=== PATIENT | male | born 1935 | race African-American/Black ===

== ENCOUNTER 2017-07-23 11:02 | Inpatient (IN) | payer MEDICARE ==
[2017-07-23] MEDS ORDERED: PROVENTIL IH ONE (11:10)
[2017-07-23] MEDS ORDERED: ATROVENT IH ONE (11:10)
[2017-07-23] MEDS ORDERED: MAGNESIUM SULFATE 2GM/50ML 2 GM/50 ML BAG IV ONE (11:10)
--- NOTE | 2017-07-23 11:13 | Emergency Department Report ---
ED General Adult HPI - General Chief complaint: Dyspnea/Respdistress Stated complaint: JEWEL Time Seen by Provider: 07/23/17 11:07 Source: patient, EMS (verbal report received from EMS.ems notes not available at time of chart dictation), RN notes reviewed Mode of arrival: Stretcher Limitations: Physical Limitation - History of Present Illness Initial comments: This is an 82-year-old male, patient previously known to me, has a past medical history of asthma or COPD, high cholesterol, diabetes, possible congestive heart failure, hypertension, CABG, end-stage renal disease on dialysis, his private urogynecology physician is Dr. Bakari Granger. Patient was supposed to get dialysis today, and is brought to the hospital by EMS for shortness of breath. His shortness of breath is constant. He is coughing. He is wheezing. He has mucus production. He denies headache, neck pain, abdominal pain, hematemesis, bright red blood per rectum. Patient started empirically on positive pressure ventilation, albuterol, Atrovent, steroids, magnesium. These interventions dramatically improved his symptoms. -: Gradual Consistency: constant Improves with: medication Worsens with: rest Associated Symptoms: cough, loss of appetite, malaise, shortness of breath. denies: confusion, chest pain, diaphoresis, fever/chills, rash, seizure - Related Data Home Medications Medication Instructions Recorded Confirmed Last Taken ALBUTEROL Inhaler [ProAir HFA 90 mcg IH QID 09/21/15 09/21/15 Unknown Inhaler] Cholecalciferol (Vitamin D3) 2,000 unit PO QDAY 09/21/15 09/21/15 Unknown [Vitamin D3 2,000 unit] Cilostazol [Pletal] 50 mg PO BID 09/21/15 09/21/15 Unknown Fenofibric Acid 45 mg PO DAILY 09/21/15 09/21/15 Unknown Fluticasone/Salmeterol [Advair 1 puff IH BID 09/21/15 09/21/15 Unknown Diskus 250-50 mcg] Pravastatin Sodium [Pravastatin] 80 mg PO DAILY 09/21/15 09/21/15 Unknown Tiotropium [Spiriva] 18 mcg IH QDAY 09/21/15 09/21/15 Unknown Previous Rx's Medication Instructions Recorded Last Taken Type Aspirin EC [Aspirin Enteric Coated 81 mg PO QDAY tablet 09/30/15 Unknown Rx TAB] Cephalexin [Keflex] 500 mg PO Q8HR 3 Days cap 09/30/15 Unknown Rx Insulin Glargine,Hum.rec.anlog 10 units SQ QHS 30 Days pen 09/30/15 Unknown Rx [Lantus Solostar] Insulin Glulisine [Apidra] See Protocol SUB-Q ACHS 30 Days 09/30/15 Unknown Rx units Warfarin [Coumadin] 5 mg PO DAILY@1700 30 Days tablet 09/30/15 Unknown Rx amLODIPine [Norvasc] 10 mg PO QDAY 30 Days tablet 09/30/15 Unknown Rx oxyCODONE /ACETAMINOPHEN [Percocet 1 tab PO Q6H PRN #17 tablet 09/30/15 Unknown Rx 5/325 mg] Allergies Allergy/AdvReac Type Severity Reaction Status Date / Time No Known Allergies Allergy Unverified 09/21/15 18:10 ED Review of Systems ROS: Stated complaint: JEWEL Other details as noted in HPI ED Past Medical Hx - Past Medical History Hx Hypertension: Yes Hx Congestive Heart Failure: Yes Hx Diabetes: Yes Hx Asthma: Yes Hx COPD: Yes - Surgical History Additional Surgical History: Triple bypass - Social History Smoking Status: Former Smoker - Medications Home Medications: Home Medications Medication Instructions Recorded Confirmed Last Taken Type ALBUTEROL Inhaler [ProAir HFA 90 mcg IH QID 09/21/15 09/21/15 Unknown History Inhaler] Cholecalciferol (Vitamin D3) 2,000 unit PO QDAY 09/21/15 09/21/15 Unknown History [Vitamin D3 2,000 unit] Cilostazol [Pletal] 50 mg PO BID 09/21/15 09/21/15 Unknown History Fenofibric Acid 45 mg PO DAILY 09/21/15 09/21/15 Unknown History Fluticasone/Salmeterol [Advair 1 puff IH BID 09/21/15 09/21/15 Unknown History Diskus 250-50 mcg] Pravastatin Sodium [Pravastatin] 80 mg PO DAILY 09/21/15 09/21/15 Unknown History Tiotropium [Spiriva] 18 mcg IH QDAY 09/21/15 09/21/15 Unknown History Aspirin EC [Aspirin Enteric Coated 81 mg PO QDAY tablet 09/30/15 Unknown Rx TAB] Cephalexin [Keflex] 500 mg PO Q8HR 3 Days cap 09/30/15 Unknown Rx Insulin Glargine,Hum.rec.anlog 10 units SQ QHS 30 Days pen 09/30/15 Unknown Rx [Lantus Solostar] Insulin Glulisine [Apidra] See Protocol SUB-Q ACHS 30 Days 09/30/15 Unknown Rx units Warfarin [Coumadin] 5 mg PO DAILY@1700 30 Days tablet 09/30/15 Unknown Rx amLODIPine [Norvasc] 10 mg PO QDAY 30 Days tablet 09/30/15 Unknown Rx oxyCODONE /ACETAMINOPHEN [Percocet 1 tab PO Q6H PRN #17 tablet 09/30/15 Unknown Rx 5/325 mg] ED Physical Exam - General Limitations: Physical Limitation General appearance: alert, in distress - Head Head exam: Present: atraumatic, normocephalic - Eye Eye exam: Present: normal appearance, EOMI - ENT ENT exam: Present: normal exam, normal orophraynx, mucous membranes moist, normal external ear exam - Neck Neck exam: Present: normal inspection, full ROM - Respiratory Respiratory exam: Present: wheezes, rales, rhonchi. Absent: respiratory distress - Cardiovascular Cardiovascular Exam: Present: regular rate, normal rhythm, normal heart sounds. Absent: bradycardia, tachycardia, irregular rhythm, systolic murmur, diastolic murmur, rubs, gallop - GI/Abdominal GI/Abdominal exam: Present: soft, normal bowel sounds. Absent: distended, tenderness, guarding, rebound, rigid, pulsatile mass - Rectal Rectal exam: Present: deferred - Extremities Exam Extremities exam: Present: normal inspection, full ROM, normal capillary refill , other (upper extremity AV fistula on the right, no redness, pus or streaking, positive thrill, no tenderness). Absent: pedal edema, joint swelling, calf tenderness - Back Exam Back exam: Present: normal inspection, full ROM. Absent: paraspinal tenderness , vertebral tenderness - Neurological Exam Neurological exam: Present: alert, oriented X3, CN II-XII intact, other ( Extraocular movements intact. Tongue midline. No facial droop. Facial sensation intact to light touch in the V1, V2, V3 distribution bilaterally. 5 and 5 strength in 4 extremities.. Sensation is intact to light touch in 4 extremities.). Absent: motor sensory deficit - Psychiatric Psychiatric exam: Present: anxious - Skin Skin exam: Present: warm, dry, intact, normal color. Absent: rash ED Course Vital Signs 07/23/17 07/23/17 07/23/17 11:13 11:58 11:59 Temperature 98.0 F Pulse Rate 66 60 Pulse Rate [ 61 Anterior Bilateral Throughout] Respiratory 30 H 22 Rate Respiratory 20 Rate [Anterior Bilateral Throughout] Blood Pressure 140/39 131/48 O2 Sat by Pulse 100 100 Oximetry 07/23/17 12:04 Temperature Pulse Rate Pulse Rate [ 62 Anterior Bilateral Throughout] Respiratory Rate Respiratory 65 H Rate [Anterior Bilateral Throughout] Blood Pressure O2 Sat by Pulse Oximetry - Reevaluation(s) Reevaluation #1: 07/23/17 12:13 Laboratory studies indicate hyperkalemia as expected. Patient will be managed medically for this. Hospital physician has been paged. Awaiting call back. 07/23/17 12:13 Reevaluation #2: 07/23/17 12:24 Case is presented to the Hospital physician, Dr. Bravo, he accepted the patient to the medical service. ED Medical Decision Making - Lab Data Result diagrams: 07/23/17 11:24 07/23/17 11:24 Vital Signs 07/23/17 11:13 Temperature 98.0 F Pulse Rate 66 Respiratory 30 H Rate Blood Pressure 140/39 O2 Sat by Pulse 100 Oximetry - EKG Data -: EKG Interpreted by Oh EKG shows normal: sinus rhythm - EKG Data 07/23/17 12:13 Limited by motion artifact, sinus, 62 bpm, normal axis, motion artifact, T-wave inversion in V2, grossly appears unchanged from prior from the 2016, a flutter has resolved. - Radiology Data Radiology results: report reviewed, image reviewed Referring Physician: JARETT BOSCH Patient Name: ARGENTINA MARTINEZ Date of : 1935 Sex: Male Report Date: 2017-07-23 Report Status: Finalized Findings [facility] [address] [place] [address] XRay Report Signed Patient: ARGENTINA MARTINEZ MR#: [id number] : 1935 Acct:[id number] Age/Sex: 82 / M ADM Date: 07/23/17 Loc: ED Attending Dr: Ordering Physician: JARETT BOSCH MD Date of Service: 07/23/17 Procedure(s): XR chest 1V ap Accession Number(s): [id number] cc: JARETT BOSCH MD Fluoro Time In Minutes: AP CHEST: HISTORY: Dyspnea Compared to 09/27/15. CABG changes and pacemaker device are unchanged. Mild cardiomegaly and small pleural effusions are identified. There are subtle lung opacities in the lower lobes which probably represents congestive changes. If fever is present, infiltrates could be considered. The upper lung zones are clear. No pneumothorax. IMPRESSION: Mild CHF. Underlying COPD. Transcribed By: TTR Dictated By: HAYLIE ORTEGA JR, MD Electronically Authenticated By: HAYLIE ORTEGA JR, MD Signed Date/Time: 07/23/17 1135 DD/ 1134 TD/TT: 07/23/17 1135 - Medical Decision Making Differential diagnosis, including but not limited to: COPD exacerbation, pneumonia, congestive heart failure, asthma, fluid overload, multifactorial respiratory failure Assessment and plan: 82-year-old male with cough, wheezing, history of hypoxia in the field, requiring positive pressure ventilation. He improved dramatically with albuterol, Atrovent, steroids, magnesium and BiPAP therapy. X-ray the chest demonstrates a mixed clinical picture, possible pneumonia, but compared to a prior x-ray, it certainly appears that there are lower lobe infiltrates. He will therefore be treated empirically with Levaquin. I have also discussed his case with covering nephrology, Dr. Aneta Catherine; he is going to arrange dialysis. Laboratory studies pending at this time, EKG is pending at this time. Patient reassessed multiple times by myself in the department, and appears much improved. Critical Care Time: Yes Critical care time in (mins) excluding proc time.: 35 Critical care attestation.: If time is entered above; I have spent that time in minutes in the direct care of this critically ill patient, excluding procedure time. ED Disposition Clinical Impression: ESRD (end stage renal disease), Respiratory distress Disposition: OP ADMIT IP TO THIS HOSP Is pt being admited?: Yes Condition: Good Referrals: PRIMARY CARE, [Primary Care Provider] - 3-5 Days
--- NOTE | 2017-07-23 11:40 | XRay Report ---
AP CHEST: HISTORY: Dyspnea Compared to 09/27/15. CABG changes and pacemaker device are unchanged. Mild cardiomegaly and small pleural effusions are identified. There are subtle lung opacities in the lower lobes which probably represents congestive changes. If fever is present, infiltrates could be considered. The upper lung zones are clear. No pneumothorax. IMPRESSION: Mild CHF. Underlying COPD.
[2017-07-23 11:52] LABS: INR 1.42 (0.87-1.13)
[2017-07-23] MEDS ORDERED: LEVAQUIN 750MG/150ML 750 MG/150 ML BAG IV ONE (11:53)
[2017-07-23 11:56] LABS: Basophils % (Auto) 0.7 % (0.0-1.8); Eosinophils # (Auto) 0.1 K/mm3 (0.0-0.4); Hematocrit 24.5 % (35.5-45.6); Hemoglobin 8.3 gm/dl (11.8-15.2); Lymphocytes # (Auto) 1.3 K/mm3 (1.2-5.4); Lymphocytes % (Auto) 22.9 % (13.4-35.0); Mean Corpuscular HGB Conc 34 % (32-34); Mean Corpuscular Hemoglobin 35 pg (28-32); Mean Corpuscular Volume 104 fl (84-94); Monocytes # (Auto) 0.4 K/mm3 (0.0-0.8); Monocytes % (Auto) 6.4 % (0.0-7.3); Platelet Count 118 K/mm3 (140-440); Red Blood Count 2.35 M/mm3 (3.65-5.03); Red Cell Distribution Width 17.6 % (13.2-15.2)
[2017-07-23 12:07] LABS: Albumin 4.1 g/dL (3.9-5); Calcium 9.5 mg/dL (8.4-10.2)
[2017-07-23] MEDS ORDERED: D50W (25GM) Syringe IV ONE (12:12)
[2017-07-23] MEDS ORDERED: SODIUM BICARBONATE IV ONE ×2 (12:12→13:58)
[2017-07-23] MEDS ORDERED: CALCIUM GLUCONATE 1,000 MG in NACL 0.9% 100 ML IV ONE (12:12)
--- NOTE | 2017-07-23 12:29 | History and Physical Report ---
History of Present Illness Chief complaint: Cant breathe History of present illness: 82 YO Male with HTN, CHF,HLD, DM, Asthma, CAD S/P CABG, ESRD on HD(T,R,Sa), COPD presents to ED for evaluation. Pt lying in bed, confused and unable to provide history. Pt history taken from ED staff, and EMS. EMS notified for difficulty breathing. Upon arrival, patient was found in respiratory distress and treated with supplemental oxygen, and transported to [facility]. Pt seen and evaluated in ED and found to have respiratory failure secondary to fluid overload and treated with NIPPV as well as diuresis. Nephrology consulted in ED for urgent dialysis. No reports of fever, chills, CP, Palpitations, NVD, prolonged travel/immobility, leg swelling, calf pain, hemoptysis, productive cough, or recent ill contacts. Past History Past Medical History: COPD, diabetes, heart failure, hypertension, other (Asthma ) Past Surgical History: CABG, Other (RUE AVF) Social history: . denies: smoking, alcohol abuse, prescription drug abuse Family history: hypertension Medications and Allergies Allergies Allergy/AdvReac Type Severity Reaction Status Date / Time No Known Allergies Allergy Unverified 09/21/15 18:10 Home Medications Medication Instructions Recorded Confirmed Last Taken Type Fluticasone/Salmeterol [Advair 1 puff IH BID 09/21/15 07/23/17 07/22/17 History Diskus 250-50 mcg] Pravastatin Sodium [Pravastatin] 80 mg PO HS 09/21/15 07/23/17 07/22/17 History Tiotropium [Spiriva] 18 mcg IH QDAY 09/21/15 07/23/17 07/22/17 History amLODIPine [Norvasc] 10 mg PO QDAY 30 Days tablet 09/30/15 07/23/17 07/22/17 Rx Apixaban [Eliquis] 5 mg PO BID 07/23/17 07/23/17 07/22/17 History Carvedilol [Coreg] 6.25 mg PO BID 07/23/17 07/23/17 07/22/17 History Fenofibrate [Tricor] 48 mg PO QDAY 07/23/17 07/23/17 07/22/17 History Insulin Detemir [Levemir Flextouch] 20 units SUB-Q QPM 07/23/17 07/23/17 History Insulin Regular, Human [HumuLIN R] 0 unit SQ ACHS 07/23/17 07/23/17 Unknown History Multivitamin Tab [Multiple Vitamin 1 tab PO DAILY 07/23/17 07/23/17 07/22/17 History TAB (Theragran)] Active Meds: Active Medications Levofloxacin/Dextrose (Levaquin 750mg/150ml) 750 mg in 150 mls @ 100 mls/hr IV ONCE ONE Stop: 07/23/17 13:22 Calcium Gluconate 1,000 mg/ (Sodium Chloride) 110 mls @ 660 mls/hr IV ONCE ONE Stop: 07/23/17 12:21 Sodium Bicarbonate (Sodium Bicarbonate) 50 meq IV ONCE ONE Stop: 07/23/17 12:13 Review of Systems ROS unobtainable: due to mental status Exam - Constitutional Vitals: Temp Pulse Resp BP Pulse Ox 98.0 F 62 65 H 131/48 100 07/23/17 11:13 07/23/17 12:04 07/23/17 12:04 07/23/17 11:59 07/23/17 11:59 General appearance: Present: mild distress - EENT Eyes: Present: PERRL ENT: hearing intact, clear oral mucosa - Neck Neck: Present: supple, normal ROM - Respiratory Respiratory effort: labored Respiratory: bilateral: diminished, rhonchi - Cardiovascular Heart Sounds: Present: S1 & S2. Absent: rub, click - Extremities Extremities: pulses symmetrical, No edema Peripheral Pulses: within normal limits - Abdominal General gastrointestinal: Present: soft, non-tender, non-distended, normal bowel sounds Male genitourinary: Present: normal - Integumentary Integumentary: Present: clear, warm, dry - Musculoskeletal Musculoskeletal: gait normal, strength equal bilaterally - Psychiatric Psychiatric: no intact judgment & insight, no memory intact - Neurologic Neurologic: no focal deficits, no gait normal Results - Labs CBC & Chem 7: 07/23/17 11:24 07/23/17 11:24 Labs: Abnormal lab results 07/23/17 07/23/17 07/23/17 Range/Units 11:24 11:24 11:24 RBC 2.35 L (3.65-5.03) M/mm3 Hgb 8.3 L (11.8-15.2) gm/dl Hct 24.5 L (35.5-45.6) % MCV 104 H (84-94) fl MCH 35 H (28-32) pg RDW 17.6 H (13.2-15.2) % Plt Count 118 L (140-440) K/mm3 PT 18.1 H (12.2-14.9) Sec. INR 1.42 H (0.87-1.13) Potassium 5.8 H (3.6-5.0) mmol/L Chloride 96.0 L (98-107) mmol/L BUN 57 H (9-20) mg/dL Creatinine 3.4 H (0.8-1.5) mg/dL Glucose 182 H (75-100) mg/dL NT-Pro-B Natriuret Pep (0-900) pg/mL Total Protein 8.3 H (6.3-8.2) g/dL 07/23/17 Range/Units 11:24 RBC (3.65-5.03) M/mm3 Hgb (11.8-15.2) gm/dl Hct (35.5-45.6) % MCV (84-94) fl MCH (28-32) pg RDW (13.2-15.2) % Plt Count (140-440) K/mm3 PT (12.2-14.9) Sec. INR (0.87-1.13) Potassium (3.6-5.0) mmol/L Chloride (98-107) mmol/L BUN (9-20) mg/dL Creatinine (0.8-1.5) mg/dL Glucose (75-100) mg/dL NT-Pro-B Natriuret Pep 3200 H (0-900) pg/mL Total Protein (6.3-8.2) g/dL Assessment and Plan - Patient Problems (1) COPD with exacerbation Current Visit: Yes Status: Acute Plan to address problem: IV abx, IV steroids, supplemental oxygen, nebulizer therapy, pulmonary toilet, NIPPV (2) Acute respiratory failure Current Visit: Yes Status: Acute Plan to address problem: NIPPV, supplemental oxygen, nebulizer therapy, incentive spirometry, (3) ESRD (end stage renal disease) Current Visit: Yes Status: Acute Plan to address problem: Nephrology consulted, dialysis as pre renal team. (4) CHF (congestive heart failure) Current Visit: Yes Status: Suspected Qualifiers: Congestive heart failure type: systolic Plan to address problem: Echo, Most recent echo from 2016 showed normal EF, supportive care, fluid restriction, monitor uop q shift, afterload reduction, (5) HTN (hypertension) Current Visit: Yes Status: Acute Plan to address problem: monitor bp q shift, continue medical management (6) DVT prophylaxis Current Visit: Yes Status: Acute
[2017-07-23] MEDS ORDERED: ZOFRAN IV PRN (12:30)
[2017-07-23] MEDS ORDERED: MILK OF MAGNESIA PO PRN (12:30)
[2017-07-23] MEDS ORDERED: PROVENTIL IH PRN (12:30)
[2017-07-23] MEDS ORDERED: DULCOLAX PR PRN (12:30)
[2017-07-23] MEDS ORDERED: TYLENOL PO PRN (12:30)
[2017-07-23] MEDS ORDERED: NACL 0.9% 100 ML IV PRN (13:42)
--- NOTE | 2017-07-23 13:52 | Consultation ---
History of Present Illness - Reason for Consult Consult date: 07/23/17 end stage renal disease, hyperkalemia Requesting physician: JARETT BOSCH - History of Present Illness This is a 82 year old male with PMH of ESRD on HD, hypertension, CAD, s/p CABG, on eliquis, type 2 diabetes insulin dependent, possible CHF, asthma, hyperlipidemia, anemia, and COPD who presented to [facility] today with worsening shortness of breath. Patient was found to be in respiratory distress in the ED, placed on BIPAP machine. S/p Chest X Ray today showed mild CHF and underlying COPD. Labs reviewed, showed elevated potassium level of 5.8, ordered to receive 1 amp of sodium bicarbonate, IV insulin/ D50. Patient in no acute distress, no family at bedside at time of my examination. Patient denies chest pain, abdominal pain, headache, fever, chills, hematuria, dysuria, nausea, vomiting, diarrhea, bloody or black stools, numbness/tingling. Patient reports he still urinates. We were consulted to evaluate this patient who has ESRD and requires HD and renal management. This patient undergoes outpatient dialysis at [facility] [place] every Saturday, , and Saturday. Last HD treatment was Saturday07/20/17 per patient. Past History Past Medical History: COPD, diabetes, heart failure, hypertension, other (Asthma ) Past Surgical History: CABG, Other (Right upper arm AVF) Medications and Allergies Allergies Allergy/AdvReac Type Severity Reaction Status Date / Time No Known Allergies Allergy Unverified 09/21/15 18:10 Home Medications Medication Instructions Recorded Confirmed Last Taken Type Fluticasone/Salmeterol [Advair 1 puff IH BID 09/21/15 07/23/17 07/22/17 History Diskus 250-50 mcg] Pravastatin Sodium [Pravastatin] 80 mg PO HS 09/21/15 07/23/17 07/22/17 History Tiotropium [Spiriva] 18 mcg IH QDAY 09/21/15 07/23/17 07/22/17 History amLODIPine [Norvasc] 10 mg PO QDAY 30 Days tablet 09/30/15 07/23/17 07/22/17 Rx Apixaban [Eliquis] 5 mg PO BID 07/23/17 07/23/17 07/22/17 History Carvedilol [Coreg] 6.25 mg PO BID 07/23/17 07/23/17 07/22/17 History Fenofibrate [Tricor] 48 mg PO QDAY 07/23/17 07/23/17 07/22/17 History Insulin Detemir [Levemir Flextouch] 20 units SUB-Q QPM 07/23/17 07/23/17 History Insulin Regular, Human [HumuLIN R] 0 unit SQ ACHS 07/23/17 07/23/17 Unknown History Multivitamin Tab [Multiple Vitamin 1 tab PO DAILY 07/23/17 07/23/17 07/22/17 History TAB (Theragran)] Active Meds: Active Medications Acetaminophen (Tylenol) 650 mg PO Q4H PRN PRN Reason: Pain MILD(1-3)/Fever >100.5/GILLESPIE Albuterol (Proventil) 2.5 mg IH Q4HRT PRN PRN Reason: Shortness Of Breath Bisacodyl (Dulcolax) 10 mg WI QDAY PRN PRN Reason: Constipation unrelieved by MOM Azithromycin 500 mg/ Sodium (Chloride) 250 mls @ 250 mls/hr IV Q24HR JANES Calcium Chloride 1,000 mg/ (Sodium Chloride) 110 mls @ 660 mls/hr IV ONCE.ED ONE Stop: 07/23/17 14:09 Last Admin: 07/23/17 13:46 Dose: Not Given Sodium Chloride (Nacl 0.9%) 100 mls @ 999 mls/hr IV CHENTE PRN PRN Reason: Hypotension Magnesium Hydroxide (Milk Of Magnesia) 30 ml PO Q4H PRN PRN Reason: Constipation Methylprednisolone Sodium Succinate (Solu-Medrol) 40 mg IV Q12HR JANES Ondansetron HCl (Zofran) 4 mg IV Q8H PRN PRN Reason: N/V unrelieved by Reglan Review of Systems Constitutional: fatigue, weakness, no fever Ears, nose, mouth and throat: no sore throat, no headache Cardiovascular: shortness of breath, dyspnea on exertion, leg edema, no chest pain Respiratory: cough, shortness of breath, dyspnea on exertion Gastrointestinal: no abdominal pain, no nausea, no vomiting, no diarrhea, no constipation, no hematemesis, no melena Genitourinary Male: no dysuria, no hematuria Musculoskeletal: no arm numbness/tingling, no leg numbness/tingling Integumentary: no sores, no wounds Neurological: no numbness, no tingling, no seizures Endocrine: fatigue Exam - Vital Signs Vital signs: Vital Signs Temp Pulse Resp BP Pulse Ox 98.0 F 66 30 H 140/39 100 07/23/17 11:13 07/23/17 11:13 07/23/17 11:13 07/23/17 11:13 07/23/17 11:13 - General Appearance General appearance: other (Seen in ED on BIPAP machine) EENT: ATNC Neck: Present: neck supple Respiratory: Other (Lung sounds coarse bilaterally, unlabored on BIPAP ) Heart: regular, S1S2, other (ACCESS: Right AVF with positive thrill and bruit noted) Gastrointestinal: Present: normoactive bowel sounds. Absent: tenderness Integumentary: warm and dry Neurologic: alert and oriented x3 Musculoskeletal: Present: other (trace edema to both lower extremities) Psychiatric: mood/affect appropriate, cooperative Results - Lab Results 07/23/17 11:24 07/23/17 11:24 Most recent lab results Calcium 9.5 mg/dL (8.4-10.2) 07/23/17 11:24 Magnesium 2.00 mg/dL (1.7-2.3) 07/23/17 11:24 Assessment and Plan - Patient Problems (1) Acute respiratory distress Current Visit: Yes Status: Acute Plan to address problem: Questionable pneumonia, worsened in setting of volume overload with underlying h /o COPD and possible COPD exacerbation S/p chest X Ray on 07/23/17 showed mild CHF and underlying COPD BNP level on admission (07/23/17) was 3200 Currently on BIPAP Ultrafiltration with Hemodialysis Started on methylprednisolone 40 mg IV every 12 hours and albuterol nebs treatments Started on Levaquin and azithromycin Blood cultures pending (2) End stage renal disease on dialysis Current Visit: No Status: Acute Plan to address problem: Hemodialysis today for ultrafiltration and clearance via Right AVF HD prescription adjusted to [facility] for hyperkalemia management Right AVF with positive thrill and bruit noted I spoke with dialysis nurse who should be able to dialyze patient in approximately 1 hour Assess need for HD on daily basis Obtain phosphorus and PTH Monitor daily labs Epogen dosing during HD for anemia management Check iron panel Once able to eat, will need diabetic/renal diet with fluid restriction of 1 liter per day Renally dose medications This patient undergoes outpatient dialysis at [facility] every Saturday, , and Saturday. Last outpatient HD treatment was Saturday07/20/17 Obtain daily weight Strict intake and output Renal plan discussed with Dr Catherine Continue supportive therapy (3) Hyperkalemia Current Visit: Yes Status: Acute Plan to address problem: Ordered to receive IV insulin/D50 and 1 amp of sodium bicarbonate Hemodialysis today for UF and clearance HD prescription adjusted to [facility] for hyperkalemia management Once able to eat, needs low potassium diet (4) Anemia Current Visit: Yes Status: Acute Plan to address problem: Obtain iron studies Epogen dosing during HD for anemia management Monitor for need for blood transfusion (5) Hypertensive CKD, ESRD on dialysis Current Visit: Yes Status: Acute Plan to address problem: Monitor blood pressure closely, may need to restart on home medication regimen (6) Type 2 diabetes mellitus treated with insulin Current Visit: Yes Status: Acute Plan to address problem: As per primary team
[2017-07-23] MEDS ORDERED: CALCIUM CHLORIDE 1,000 MG in NACL 0.9% 100 ML IV ONE (14:00)
[2017-07-23] MEDS: PROCRIT SUB-Q SCH (19:19)
[2017-07-24 05:43] LABS: Hematocrit 23.4 % (35.5-45.6); Hemoglobin 7.9 gm/dl (11.8-15.2); Mean Corpuscular HGB Conc 34 % (32-34); Mean Corpuscular Hemoglobin 36 pg (28-32); Mean Corpuscular Volume 106 fl (84-94); Platelet Count 102 K/mm3 (140-440); Red Cell Distribution Width 17.5 % (13.2-15.2)
[2017-07-24 06:08] LABS: Calcium 8.9 mg/dL (8.4-10.2)
--- NOTE | 2017-07-24 10:23 | Progress Note ---
<JARETT MCFARLANE - Last Filed: 07/24/17 17:13> Assessment and Plan Assessment and plan: I saw and evaluated the patient. I agree with the findings and the plan of care as documented in the Nurse Practitioner's~note, with the following corrections and additions. Patient with COPD exacerbation, hyperkalemia. kayexalate given. Dialysis today Hospitalist Physical - Constitutional Vitals: Temp Pulse Resp BP Pulse Ox 98.7 F 60 20 145/45 97 07/24/17 07:57 07/24/17 13:46 07/24/17 10:00 07/24/17 13:46 07/24/17 10:00 Results - Labs CBC & Chem 7: 07/24/17 04:50 07/24/17 04:50 Labs: Laboratory Last Values WBC 3.4 K/mm3 (4.5-11.0) L 07/24/17 04:50 RBC 2.20 M/mm3 (3.65-5.03) L 07/24/17 04:50 Hgb 7.9 gm/dl (11.8-15.2) L 07/24/17 04:50 Hct 23.4 % (35.5-45.6) L 07/24/17 04:50 MCV 106 fl (84-94) H 07/24/17 04:50 MCH 36 pg (28-32) H 07/24/17 04:50 MCHC 34 % (32-34) 07/24/17 04:50 RDW 17.5 % (13.2-15.2) H 07/24/17 04:50 Plt Count 102 K/mm3 (140-440) L 07/24/17 04:50 Lymph % (Auto) 22.9 % (13.4-35.0) 07/23/17 11:24 [place] % (Auto) 6.4 % (0.0-7.3) 07/23/17 11:24 Eos % (Auto) 2.0 % (0.0-4.3) 07/23/17 11:24 Baso % (Auto) 0.7 % (0.0-1.8) 07/23/17 11:24 Lymph # 1.3 K/mm3 (1.2-5.4) 07/23/17 11:24 [place]lin # 0.4 K/mm3 (0.0-0.8) 07/23/17 11:24 Eos # 0.1 K/mm3 (0.0-0.4) 07/23/17 11:24 Baso # 0.0 K/mm3 (0.0-0.1) 07/23/17 11:24 Seg Neutrophils % 68.0 % (40.0-70.0) 07/23/17 11:24 Seg Neutrophils # 3.9 K/mm3 (1.8-7.7) 07/23/17 11:24 PT 18.1 Sec. (12.2-14.9) H 07/23/17 11:24 INR 1.42 (0.87-1.13) H 07/23/17 11:24 Sodium 138 mmol/L (137-145) 07/24/17 04:50 Potassium 5.5 mmol/L (3.6-5.0) H 07/24/17 04:50 Chloride 95.5 mmol/L (98-107) L 07/24/17 04:50 Carbon Dioxide 29 mmol/L (22-30) 07/24/17 04:50 Anion Gap 19 mmol/L 07/24/17 04:50 BUN 41 mg/dL (9-20) H 07/24/17 04:50 Creatinine 2.6 mg/dL (0.8-1.5) H 07/24/17 04:50 Estimated GFR 24 ml/min 07/24/17 04:50 BUN/Creatinine Ratio 16 % 07/24/17 04:50 Glucose 427 mg/dL (75-100) H 07/24/17 04:50 POC Glucose 386 (70-105) H 07/24/17 12:29 Lactic Acid 1.80 mmol/L (0.7-2.0) 07/23/17 12:23 Calcium 8.9 mg/dL (8.4-10.2) 07/24/17 04:50 Phosphorus 3.30 mg/dL (2.5-4.5) 07/24/17 04:50 Magnesium 2.00 mg/dL (1.7-2.3) 07/23/17 11:24 Iron 84 ug/dL (49-181) 07/24/17 04:50 TIBC 219 mcg/dL (250-450) L 07/24/17 04:50 Transferrin 210 mg/dl (180-329) 07/24/17 04:50 Ferritin 581.6 ng/mL (13.0-400.0) H 07/24/17 04:50 Total Bilirubin 1.00 mg/dL (0.1-1.2) 07/23/17 11:24 AST 20 units/L (5-40) 07/23/17 11:24 ALT 16 units/L (7-56) 07/23/17 11:24 Alkaline Phosphatase 77 units/L (35-129) 07/23/17 11:24 Troponin T 0.027 ng/mL (0.00-0.029) 07/23/17 11:24 NT-Pro-B Natriuret Pep 3200 pg/mL (0-900) H 07/23/17 11:24 Total Protein 8.3 g/dL (6.3-8.2) H 07/23/17 11:24 Albumin 4.1 g/dL (3.9-5) 07/23/17 11:24 Albumin/Globulin Ratio 1.0 % 07/23/17 11:24 PTH Intact 109.1 pg/mL (15-65) H 07/24/17 04:50 <NATY RENEE - Last Filed: 07/25/17 08:23> Assessment and Plan Assessment and plan: 82 YO Male with HTN, CHF,HLD, DM, Asthma, CAD S/P CABG, ESRD on HD(T,R,Sa), COPD presents to ED for evaluation. Pt lying in bed, confused and unable to provide history. Pt history taken from ED staff, and EMS. EMS notified for difficulty breathing. Upon arrival, patient was found in respiratory distress and treated with supplemental oxygen, and transported to [facility]. Pt seen and evaluated in ED and found to have respiratory failure secondary to fluid overload and treated with NIPPV as well as diuresis. Nephrology consulted in ED for urgent dialysis. No reports of fever, chills, CP, Palpitations, NVD, prolonged travel/immobility, leg swelling, calf pain, hemoptysis, productive cough, or recent ill contacts. COPD with exacerbation IV abx, IV steroids, supplemental oxygen, nebulizer therapy, pulmonary toilet, NIPPV Acute respiratory failure NIPPV, supplemental oxygen, nebulizer therapy, incentive spirometry, ESRD (end stage renal disease) Nephrology consulted, dialysis as per renal team. CHF (congestive heart failure) Echo, Most recent echo from 2016 showed normal EF, supportive care, fluid restriction, monitor uop q shift, afterload reduction, HTN (hypertension) monitor bp q shift, continue medical management Anemia Likely of chronic dz, Continue to monitor, GI consult, transfuse if Hgb <7 Hyperkalemia Kayexalate given Hyperglycemia Initiate insulin before meals and at bedtime, ADA diet and Accu-Cheks Hyperlipidemia Continue statin therapy DVT prophylaxis On Eliquis History Interval history: Patient was seen and examined. He denies chest pain, shortness of breath, nausea and vomiting. Labs and nursing notes reviewed. Hospitalist Physical - Constitutional Vitals: Temp Pulse Resp BP Pulse Ox 98.7 F 60 20 131/58 97 07/24/17 07:57 07/24/17 07:57 07/24/17 07:57 07/24/17 07:57 07/24/17 07:57 General appearance: Present: no acute distress - EENT Eyes: Present: PERRL, EOM intact ENT: hearing intact, clear oral mucosa - Neck Neck: Present: supple, normal ROM - Respiratory Respiratory effort: normal Respiratory: bilateral: wheezing - Cardiovascular Rhythm: regular Heart Sounds: Present: S1 & S2 - Extremities Extremities: no ischemia, No edema Peripheral Pulses: within normal limits - Abdominal General gastrointestinal: soft, non-tender - Integumentary Integumentary: Present: clear, warm, dry - Psychiatric Psychiatric: appropriate mood/affect, cooperative - Neurologic Neurologic: CNII-XII intact, moves all extremities - Allied Health Allied health notes reviewed: nursing Results - Labs CBC & Chem 7: 07/25/17 06:22 07/25/17 06:22 Labs: Laboratory Last Values WBC 3.4 K/mm3 (4.5-11.0) L 07/24/17 04:50 RBC 2.20 M/mm3 (3.65-5.03) L 07/24/17 04:50 Hgb 7.9 gm/dl (11.8-15.2) L 07/24/17 04:50 Hct 23.4 % (35.5-45.6) L 07/24/17 04:50 MCV 106 fl (84-94) H 07/24/17 04:50 MCH 36 pg (28-32) H 07/24/17 04:50 MCHC 34 % (32-34) 07/24/17 04:50 RDW 17.5 % (13.2-15.2) H 07/24/17 04:50 Plt Count 102 K/mm3 (140-440) L 07/24/17 04:50 Lymph % (Auto) 22.9 % (13.4-35.0) 07/23/17 11:24 Hamlin % (Auto) 6.4 % (0.0-7.3) 07/23/17 11:24 Eos % (Auto) 2.0 % (0.0-4.3) 07/23/17 11:24 Baso % (Auto) 0.7 % (0.0-1.8) 07/23/17 11:24 Lymph # 1.3 K/mm3 (1.2-5.4) 07/23/17 11:24 Hamlin # 0.4 K/mm3 (0.0-0.8) 07/23/17 11:24 Eos # 0.1 K/mm3 (0.0-0.4) 07/23/17 11:24 Baso # 0.0 K/mm3 (0.0-0.1) 07/23/17 11:24 Seg Neutrophils % 68.0 % (40.0-70.0) 07/23/17 11:24 Seg Neutrophils # 3.9 K/mm3 (1.8-7.7) 07/23/17 11:24 PT 18.1 Sec. (12.2-14.9) H 07/23/17 11:24 INR 1.42 (0.87-1.13) H 07/23/17 11:24 Sodium 138 mmol/L (137-145) 07/24/17 04:50 Potassium 5.5 mmol/L (3.6-5.0) H 07/24/17 04:50 Chloride 95.5 mmol/L (98-107) L 07/24/17 04:50 Carbon Dioxide 29 mmol/L (22-30) 07/24/17 04:50 Anion Gap 19 mmol/L 07/24/17 04:50 BUN 41 mg/dL (9-20) H 07/24/17 04:50 Creatinine 2.6 mg/dL (0.8-1.5) H 07/24/17 04:50 Estimated GFR 24 ml/min 07/24/17 04:50 BUN/Creatinine Ratio 16 % 07/24/17 04:50 Glucose 427 mg/dL (75-100) H 07/24/17 04:50 POC Glucose 176 (70-105) H 07/23/17 13:55 Lactic Acid 1.80 mmol/L (0.7-2.0) 07/23/17 12:23 Calcium 8.9 mg/dL (8.4-10.2) 07/24/17 04:50 Phosphorus 3.30 mg/dL (2.5-4.5) 07/24/17 04:50 Magnesium 2.00 mg/dL (1.7-2.3) 07/23/17 11:24 Iron 84 ug/dL (49-181) 07/24/17 04:50 TIBC 219 mcg/dL (250-450) L 07/24/17 04:50 Transferrin 210 mg/dl (180-329) 07/24/17 04:50 Ferritin 581.6 ng/mL (13.0-400.0) H 07/24/17 04:50 Total Bilirubin 1.00 mg/dL (0.1-1.2) 07/23/17 11:24 AST 20 units/L (5-40) 07/23/17 11:24 ALT 16 units/L (7-56) 07/23/17 11:24 Alkaline Phosphatase 77 units/L (35-129) 07/23/17 11:24 Troponin T 0.027 ng/mL (0.00-0.029) 07/23/17 11:24 NT-Pro-B Natriuret Pep 3200 pg/mL (0-900) H 07/23/17 11:24 Total Protein 8.3 g/dL (6.3-8.2) H 07/23/17 11:24 Albumin 4.1 g/dL (3.9-5) 07/23/17 11:24 Albumin/Globulin Ratio 1.0 % 07/23/17 11:24 PTH Intact 109.1 pg/mL (15-65) H 07/24/17 04:50
[2017-07-24] MEDS ORDERED: D50W (25GM) Syringe IV PRN (10:24)
[2017-07-24] MEDS ORDERED: NON-FORMULARY (Fluticasone/Salmeterol [Advair Diskus 250-50 Mcg] 1 PUFF) IH SCH (10:30)
[2017-07-24] MEDS ORDERED: NOVOLOG SUB-Q SCH (12:00)
[2017-07-24] MEDS ORDERED: KIONEX PR ONE (12:00)
--- NOTE | 2017-07-24 12:09 | Progress Note ---
Assessment and Plan - Patient Problems (1) ESRD (end stage renal disease) Current Visit: Yes Status: Acute Plan to address problem: Hemodialysis again today for ultrafiltration and clearance via Right AVF Right AVF with positive thrill and bruit noted Assess need for HD on daily basis Monitor daily labs Epogen dosing during HD for anemia management Fluid restriction of 1 liter per day Renally dose medications Obtain daily weights Strict intake and output Continue supportive therapy (2) COPD with exacerbation Current Visit: Yes Status: Acute Plan to address problem: Chest X Ray on 07/23/17 showed mild CHF and underlying COPD On venturi mask for oxygen delivery Uses chronic portable oxygen via NC 2-2.5 liters at home Ultrafiltration with Hemodialysis On Solumedrol 40 mg IV every 12 hours and albuterol nebs treatments On Levaquin and azithromycin Blood cultures remains in progress (3) Anemia Current Visit: Yes Status: Acute Plan to address problem: On Epogen 10,000 units with HD (4) Hypertensive CKD, ESRD on dialysis Current Visit: Yes Status: Acute Plan to address problem: Continue on antihypertensive agents (5) IDDM (insulin dependent diabetes mellitus) Current Visit: No Status: Chronic Plan to address problem: On insulin as per Primary (6) Hyperkalemia Current Visit: Yes Status: Acute Plan to address problem: Hemodialysis today Subjective Date of service: 07/24/17 Principal diagnosis: COPD, ESRD Interval history: Patient seen sitting up in bed. States has shortness of breath. On venturi mask Objective - Vital Signs Vital signs: Vital Signs - 12hr 07/24/17 07/24/17 07:57 10:00 Temperature 98.7 F Pulse Rate 60 Respiratory 20 20 Rate Blood Pressure 131/58 O2 Sat by Pulse 97 97 Oximetry - General Appearance General appearance: well-developed, appears stated age, fatigue EENT: ATNC, PERRL, hearing intact, vision intact Neck: no JVD, supple Respiratory: Present: Decreased Breath Sounds, Hx COPD Cardiology: regular, S1S2 Gastrointestinal: normoactive bowel sounds Integumentary: warm and dry Neurologic: alert and oriented x3 Musculoskeletal: other (No edema to BLE) Psychiatric: cooperative - Lab 07/24/17 04:50 07/24/17 04:50 Most recent lab results Calcium 8.9 mg/dL (8.4-10.2) 07/24/17 04:50 Phosphorus 3.30 mg/dL (2.5-4.5) 07/24/17 04:50 Magnesium 2.00 mg/dL (1.7-2.3) 07/23/17 11:24
[2017-07-24] MEDS: NOVOLOG SUB-Q SCH ×2 (13:23→17:00)
[2017-07-24] MEDS: ELIQUIS PO SCH ×2 (13:43→22:00)
[2017-07-24] MEDS: TRICOR PO SCH (13:43)
[2017-07-24] MEDS: COREG PO SCH (13:45)
[2017-07-24] MEDS: NORVASC PO SCH (13:46)
[2017-07-24] MEDS: ZITHROMAX 500 MG in NACL 0.9% 250ML 250 ML IV SCH ×2 (15:05)
[2017-07-24] MEDS ORDERED: NON-FORMULARY (Insulin Detemir [Levemir Flextouch] 20 UNITS) SUB-Q SCH (18:00)
[2017-07-24] MEDS: PULMICORT IH SCH (20:08)
[2017-07-24] MEDS: BROVANA NEBU IH SCH (20:08)
[2017-07-24] MEDS ORDERED: PRAVASTATIN SODIUM 80 MG PO SCH (22:00)
[2017-07-24] MEDS: PRAVACHOL PO SCH (22:00)
[2017-07-24] MEDS ORDERED: NACL 0.9 (PRIMING MACHINE ONLY DIALYSIS) MC ONE (22:59)
[2017-07-25 07:13] LABS: Hematocrit 24.2 % (35.5-45.6); Hemoglobin 8.3 gm/dl (11.8-15.2); Mean Corpuscular HGB Conc 34 % (32-34); Mean Corpuscular Hemoglobin 36 pg (28-32); Mean Corpuscular Volume 104 fl (84-94); Platelet Count 117 K/mm3 (140-440); Red Blood Count 2.33 M/mm3 (3.65-5.03); Red Cell Distribution Width 17.4 % (13.2-15.2)
[2017-07-25 07:30] LABS: Calcium 8.7 mg/dL (8.4-10.2)
[2017-07-25] MEDS: BROVANA NEBU IH SCH ×2 (07:40→21:07)
[2017-07-25] MEDS: PULMICORT IH SCH ×2 (07:40→21:07)
[2017-07-25] MEDS: SPIRIVA IH SCH ×2 (07:40→13:06)
--- NOTE | 2017-07-25 08:24 | Progress Note ---
<NATY RENEE - Last Filed: 07/25/17 14:48> Assessment and Plan Assessment and plan: 82 YO Male with HTN, CHF,HLD, DM, Asthma, CAD S/P CABG, ESRD on HD(T,R,Sa), COPD presents to ED for evaluation. Pt lying in bed, confused and unable to provide history. Pt history taken from ED staff, and EMS. EMS notified for difficulty breathing. Upon arrival, patient was found in respiratory distress and treated with supplemental oxygen, and transported to [facility]. Pt seen and evaluated in ED and found to have respiratory failure secondary to fluid overload and treated with NIPPV as well as diuresis. Nephrology consulted in ED for urgent dialysis. No reports of fever, chills, CP, Palpitations, NVD, prolonged travel/immobility, leg swelling, calf pain, hemoptysis, productive cough, or recent ill contacts. COPD with exacerbation IV abx, supplemental oxygen, nebulizer therapy, pulmonary toilet, NIPPV Inititated IV steroids, pulmonology consulted Acute respiratory failure NIPPV, supplemental oxygen, nebulizer therapy, incentive spirometry, ESRD (end stage renal disease) Nephrology consulted, dialysis as per renal team. CHF (congestive heart failure) Echo, Most recent echo from 2016 showed normal EF, supportive care, fluid restriction, monitor uop q shift, afterload reduction, HTN (hypertension) monitor bp q shift, continue medical management Anemia Likely of chronic dz, On Procrit with HD Continue to monitor, occult blood ordered transfuse if Hgb <7 Hyperkalemia Resolved, will continue to monitor Hyperglycemia Restart long-acting insulin, initiate sliding scale insulin before meals and at bedtime, ADA diet and Accu-Cheks before meals and at bedtime Hyperlipidemia Continue statin therapy DVT prophylaxis On Eliquis History Interval history: Patient was seen and examined. He denies chest pain, shortness of breath, nausea and vomiting. Labs and nursing notes reviewed. Hospitalist Physical - Constitutional Vitals: Temp Pulse Resp BP Pulse Ox 98.1 F 60 18 129/50 92 07/25/17 07:46 07/25/17 07:46 07/25/17 07:46 07/25/17 07:46 07/25/17 07:46 General appearance: Present: no acute distress - EENT Eyes: Present: PERRL, EOM intact ENT: hearing intact, clear oral mucosa - Neck Neck: Present: supple, normal ROM - Respiratory Respiratory effort: normal Respiratory: bilateral: diminished - Cardiovascular Rhythm: regular Heart Sounds: Present: S1 & S2 - Extremities Extremities: no ischemia, No edema - Abdominal General gastrointestinal: soft, non-tender - Integumentary Integumentary: Present: clear, warm - Psychiatric Psychiatric: appropriate mood/affect, cooperative - Neurologic Neurologic: CNII-XII intact, moves all extremities - Allied Health Allied health notes reviewed: nursing Results - Labs CBC & Chem 7: 07/25/17 06:22 07/25/17 06:22 Labs: Laboratory Last Values WBC 7.0 K/mm3 (4.5-11.0) 07/25/17 06:22 RBC 2.33 M/mm3 (3.65-5.03) L 07/25/17 06:22 Hgb 8.3 gm/dl (11.8-15.2) L 07/25/17 06:22 Hct 24.2 % (35.5-45.6) L 07/25/17 06:22 MCV 104 fl (84-94) H 07/25/17 06:22 MCH 36 pg (28-32) H 07/25/17 06:22 MCHC 34 % (32-34) 07/25/17 06:22 RDW 17.4 % (13.2-15.2) H 07/25/17 06:22 Plt Count 117 K/mm3 (140-440) L 07/25/17 06:22 Lymph % (Auto) 22.9 % (13.4-35.0) 07/23/17 11:24 Amite % (Auto) 6.4 % (0.0-7.3) 07/23/17 11:24 Eos % (Auto) 2.0 % (0.0-4.3) 07/23/17 11:24 Baso % (Auto) 0.7 % (0.0-1.8) 07/23/17 11:24 Lymph # 1.3 K/mm3 (1.2-5.4) 07/23/17 11:24 [place] # 0.4 K/mm3 (0.0-0.8) 07/23/17 11:24 Eos # 0.1 K/mm3 (0.0-0.4) 07/23/17 11:24 Baso # 0.0 K/mm3 (0.0-0.1) 07/23/17 11:24 Seg Neutrophils % 68.0 % (40.0-70.0) 07/23/17 11:24 Seg Neutrophils # 3.9 K/mm3 (1.8-7.7) 07/23/17 11:24 PT 18.1 Sec. (12.2-14.9) H 07/23/17 11:24 INR 1.42 (0.87-1.13) H 07/23/17 11:24 Sodium 139 mmol/L (137-145) 07/25/17 06:22 Potassium 3.8 mmol/L (3.6-5.0) D 07/25/17 06:22 Chloride 94.3 mmol/L (98-107) L 07/25/17 06:22 Carbon Dioxide 30 mmol/L (22-30) 07/25/17 06:22 Anion Gap 19 mmol/L 07/25/17 06:22 BUN 29 mg/dL (9-20) H 07/25/17 06:22 Creatinine 2.5 mg/dL (0.8-1.5) H 07/25/17 06:22 Estimated GFR 25 ml/min 07/25/17 06:22 BUN/Creatinine Ratio 12 % 07/25/17 06:22 Glucose 248 mg/dL (75-100) H 07/25/17 06:22 POC Glucose 303 (70-105) H 07/24/17 21:57 Lactic Acid 1.80 mmol/L (0.7-2.0) 07/23/17 12:23 Calcium 8.7 mg/dL (8.4-10.2) 07/25/17 06:22 Phosphorus 3.30 mg/dL (2.5-4.5) 07/24/17 04:50 Magnesium 2.00 mg/dL (1.7-2.3) 07/23/17 11:24 Iron 84 ug/dL (49-181) 07/24/17 04:50 TIBC 219 mcg/dL (250-450) L 07/24/17 04:50 Transferrin 210 mg/dl (180-329) 07/24/17 04:50 Ferritin 581.6 ng/mL (13.0-400.0) H 07/24/17 04:50 Total Bilirubin 1.00 mg/dL (0.1-1.2) 07/23/17 11:24 AST 20 units/L (5-40) 07/23/17 11:24 ALT 16 units/L (7-56) 07/23/17 11:24 Alkaline Phosphatase 77 units/L (35-129) 07/23/17 11:24 Troponin T 0.027 ng/mL (0.00-0.029) 07/23/17 11:24 NT-Pro-B Natriuret Pep 3200 pg/mL (0-900) H 07/23/17 11:24 Total Protein 8.3 g/dL (6.3-8.2) H 07/23/17 11:24 Albumin 4.1 g/dL (3.9-5) 07/23/17 11:24 Albumin/Globulin Ratio 1.0 % 07/23/17 11:24 PTH Intact 109.1 pg/mL (15-65) H 07/24/17 04:50 <JARETT MCFARLANE O - Last Filed: 07/25/17 18:18> Assessment and Plan Assessment and plan: I saw and evaluated the patient. I agree with the findings and the plan of care as documented in the Nurse Practitioner's~note, with the following corrections and additions. Patient with COPD exacerbation, ESRD. Diabetes Mellitus type 2 , uncontrolled. Levemir . Change accucheck constantin high dose. May increase Levemir dose if not controlled Hospitalist Physical - Constitutional Vitals: Temp Pulse Resp BP Pulse Ox 98.8 F 64 18 130/41 95 07/25/17 13:47 07/25/17 13:47 07/25/17 13:47 07/25/17 13:47 07/25/17 13:47 Results - Labs CBC & Chem 7: 07/25/17 06:22 07/25/17 06:22 Labs: Laboratory Last Values WBC 7.0 K/mm3 (4.5-11.0) 07/25/17 06:22 RBC 2.33 M/mm3 (3.65-5.03) L 07/25/17 06:22 Hgb 8.3 gm/dl (11.8-15.2) L 07/25/17 06:22 Hct 24.2 % (35.5-45.6) L 07/25/17 06:22 MCV 104 fl (84-94) H 07/25/17 06:22 MCH 36 pg (28-32) H 07/25/17 06:22 MCHC 34 % (32-34) 07/25/17 06:22 RDW 17.4 % (13.2-15.2) H 07/25/17 06:22 Plt Count 117 K/mm3 (140-440) L 07/25/17 06:22 Lymph % (Auto) 22.9 % (13.4-35.0) 07/23/17 11:24 Amite % (Auto) 6.4 % (0.0-7.3) 07/23/17 11:24 Eos % (Auto) 2.0 % (0.0-4.3) 07/23/17 11:24 Baso % (Auto) 0.7 % (0.0-1.8) 07/23/17 11:24 Lymph # 1.3 K/mm3 (1.2-5.4) 07/23/17 11:24 Amite # 0.4 K/mm3 (0.0-0.8) 07/23/17 11:24 Eos # 0.1 K/mm3 (0.0-0.4) 07/23/17 11:24 Baso # 0.0 K/mm3 (0.0-0.1) 07/23/17 11:24 Seg Neutrophils % 68.0 % (40.0-70.0) 07/23/17 11:24 Seg Neutrophils # 3.9 K/mm3 (1.8-7.7) 07/23/17 11:24 PT 18.1 Sec. (12.2-14.9) H 07/23/17 11:24 INR 1.42 (0.87-1.13) H 07/23/17 11:24 Sodium 139 mmol/L (137-145) 07/25/17 06:22 Potassium 3.8 mmol/L (3.6-5.0) D 07/25/17 06:22 Chloride 94.3 mmol/L (98-107) L 07/25/17 06:22 Carbon Dioxide 30 mmol/L (22-30) 07/25/17 06:22 Anion Gap 19 mmol/L 07/25/17 06:22 BUN 29 mg/dL (9-20) H 07/25/17 06:22 Creatinine 2.5 mg/dL (0.8-1.5) H 07/25/17 06:22 Estimated GFR 25 ml/min 07/25/17 06:22 BUN/Creatinine Ratio 12 % 07/25/17 06:22 Glucose 248 mg/dL (75-100) H 07/25/17 06:22 POC Glucose 426 (70-105) H 07/25/17 16:31 Lactic Acid 1.80 mmol/L (0.7-2.0) 07/23/17 12:23 Calcium 8.7 mg/dL (8.4-10.2) 07/25/17 06:22 Phosphorus 3.30 mg/dL (2.5-4.5) 07/24/17 04:50 Magnesium 2.00 mg/dL (1.7-2.3) 07/23/17 11:24 Iron 84 ug/dL (49-181) 07/24/17 04:50 TIBC 219 mcg/dL (250-450) L 07/24/17 04:50 Transferrin 210 mg/dl (180-329) 07/24/17 04:50 Ferritin 581.6 ng/mL (13.0-400.0) H 07/24/17 04:50 Total Bilirubin 1.00 mg/dL (0.1-1.2) 07/23/17 11:24 AST 20 units/L (5-40) 07/23/17 11:24 ALT 16 units/L (7-56) 07/23/17 11:24 Alkaline Phosphatase 77 units/L (35-129) 07/23/17 11:24 Troponin T 0.027 ng/mL (0.00-0.029) 07/23/17 11:24 NT-Pro-B Natriuret Pep 3200 pg/mL (0-900) H 07/23/17 11:24 Total Protein 8.3 g/dL (6.3-8.2) H 07/23/17 11:24 Albumin 4.1 g/dL (3.9-5) 07/23/17 11:24 Albumin/Globulin Ratio 1.0 % 07/23/17 11:24 PTH Intact 109.1 pg/mL (15-65) H 07/24/17 04:50
[2017-07-25] MEDS: NOVOLOG SUB-Q SCH ×3 (08:32→17:23)
[2017-07-25] MEDS: ELIQUIS PO SCH ×2 (09:17→22:29)
[2017-07-25] MEDS: TRICOR PO SCH (09:17)
[2017-07-25] MEDS: ZITHROMAX PO SCH (09:17)
[2017-07-25] MEDS: NORVASC PO SCH (09:18)
[2017-07-25] MEDS: COREG PO SCH (09:18)
--- NOTE | 2017-07-25 10:50 | XRay Report ---
Portable chest: SOB. There is a slightly enlarged heart with bypass changes. There is mild vascular redistribution of flow into the upper lobes predominantly identified on the left. This may be due to lung disease in the right upper lobe. There are patchy changes of increased density at the right lung base but this is significantly improved compared to the prior exam of July 23. There is mild blunting of the left costophrenic angle which also appears slightly improved. Impression: The findings are consistent with mild congestive changes but generalized improvement in the bronchovascular pattern of the lungs and bibasilar opacities.
--- NOTE | 2017-07-25 14:37 | Progress Note ---
Assessment and Plan (1) ESRD (end stage renal disease) Current Visit: Yes Status: Acute Plan to address problem: On TTS HD outpatient via AVF. HD yesterday, no HD today, HD tommorow. Right AVF with positive thrill and bruit noted Assess need for HD on daily basis Monitor daily labs Epogen dosing during HD for anemia management Fluid restriction of 1 liter per day Renally dose medications Obtain daily weights Strict intake and output Continue supportive therapy (2) COPD with exacerbation Current Visit: Yes Status: Acute Plan to address problem: Chest X Ray on 07/23/17 showed mild CHF and underlying COPD On venturi mask for oxygen delivery Uses chronic portable oxygen via NC 2-2.5 liters at home Ultrafiltration with Hemodialysis On Solumedrol and albuterol nebs treatments On Abx Blood cultures remains in progress (3) Anemia Current Visit: Yes Status: Acute Plan to address problem: On Epogen 10,000 units with HD (4) Hypertensive CKD, ESRD on dialysis Current Visit: Yes Status: Acute Plan to address problem: Continue on antihypertensive agents (5) IDDM (insulin dependent diabetes mellitus) Current Visit: No Status: Chronic Plan to address problem: On insulin as per Primary (6) Hyperkalemia Current Visit: Yes Status: Acute Plan to address problem: Improved with HD Subjective Date of service: 07/25/17 Principal diagnosis: COPD, ESRD Interval history: Tolerated HD yesterday. Objective - Exam Narrative Exam: General appearance: Awake EENT: ATNC, PERRL, hearing intact, vision intact Neck: no JVD, supple Respiratory: Present: Decreased Breath Sounds, Hx COPD Cardiology: regular, S1S2 Gastrointestinal: normoactive bowel sounds Integumentary: warm and dry Neurologic: alert and oriented x3 Musculoskeletal: other (No edema to BLE) Psychiatric: cooperative - Vital Signs Vital signs: Vital Signs - 12hr 07/25/17 07/25/17 07/25/17 05:00 05:15 07:46 Temperature 98.6 F 98.1 F Pulse Rate 68 60 Pulse Rate [ Anterior Bilateral Throughout] Respiratory 20 18 Rate Respiratory Rate [Anterior Bilateral Throughout] Blood Pressure 126/47 129/50 O2 Sat by Pulse 95 92 Oximetry 07/25/17 07/25/17 07/25/17 08:00 08:15 09:18 Temperature Pulse Rate 60 Pulse Rate [ 60 61 Anterior Bilateral Throughout] Respiratory Rate Respiratory 18 18 Rate [Anterior Bilateral Throughout] Blood Pressure 129/50 O2 Sat by Pulse Oximetry 07/25/17 10:00 Temperature Pulse Rate 60 Pulse Rate [ Anterior Bilateral Throughout] Respiratory 18 Rate Respiratory Rate [Anterior Bilateral Throughout] Blood Pressure O2 Sat by Pulse 94 Oximetry - Lab 07/25/17 06:22 07/25/17 06:22 Most recent lab results Calcium 8.7 mg/dL (8.4-10.2) 07/25/17 06:22 Phosphorus 3.30 mg/dL (2.5-4.5) 07/24/17 04:50 Magnesium 2.00 mg/dL (1.7-2.3) 07/23/17 11:24
[2017-07-25] MEDS ORDERED: NACL 0.9% 100 ML IV PRN ×2 (15:49→16:12)
[2017-07-25] MEDS: PRAVACHOL PO SCH (22:27)
[2017-07-25] MEDS: LEVEMIR SUB-Q SCH ×2 (22:31→22:33)
[2017-07-26 05:34] LABS: Hematocrit 25.1 % (35.5-45.6); Hemoglobin 8.2 gm/dl (11.8-15.2); Mean Corpuscular HGB Conc 33 % (32-34); Mean Corpuscular Hemoglobin 35 pg (28-32); Mean Corpuscular Volume 106 fl (84-94); Platelet Count 110 K/mm3 (140-440); Red Blood Count 2.36 M/mm3 (3.65-5.03); Red Cell Distribution Width 16.6 % (13.2-15.2)
[2017-07-26 06:02] LABS: Calcium 8.5 mg/dL (8.4-10.2)
[2017-07-26] MEDS: SPIRIVA IH SCH ×2 (07:40→10:12)
[2017-07-26] MEDS: BROVANA NEBU IH SCH ×2 (07:40→19:10)
[2017-07-26] MEDS: PULMICORT IH SCH ×2 (07:40→19:10)
[2017-07-26] MEDS: NOVOLOG SUB-Q SCH ×3 (08:27→17:07)
[2017-07-26] MEDS: NORVASC PO SCH ×2 (08:27→10:00)
[2017-07-26] MEDS: COREG PO SCH ×4 (08:28→22:44)
[2017-07-26] MEDS: ELIQUIS PO SCH ×2 (08:28→11:30)
[2017-07-26] MEDS: ZITHROMAX PO SCH ×2 (08:29→10:00)
--- NOTE | 2017-07-26 10:02 | Progress Note ---
Assessment and Plan (1) ESRD (end stage renal disease) Current Visit: Yes Status: Acute Plan to address problem: HD today for clearance and volume removal Assess need for HD on daily basis Monitor daily labs Epogen dosing during HD for anemia management Fluid restriction of 1 liter per day Renally dose medications Obtain daily weights Strict intake and output Continue supportive therapy (2) COPD with exacerbation Current Visit: Yes Status: Acute Plan to address problem: Chest X Ray on 07/23/17 showed mild CHF and underlying COPD Uses chronic portable oxygen via NC 2-2.5 liters at home Ultrafiltration with Hemodialysis On Solumedrol and albuterol nebs treatments (3) Anemia Current Visit: Yes Status: Acute Plan to address problem: On Epogen 10,000 units with HD (4) Hypertensive CKD, ESRD on dialysis Current Visit: Yes Status: Acute Plan to address problem: Continue on antihypertensive agents (5) IDDM (insulin dependent diabetes mellitus) Current Visit: No Status: Chronic Plan to address problem: On insulin as per Primary (6) Hyperkalemia Current Visit: Yes Status: Acute Plan to address problem: resolved Subjective Date of service: 07/26/17 Principal diagnosis: COPD, ESRD Interval history: seen during HD, tolerating Objective - Vital Signs Vital signs: Vital Signs - 12hr 07/25/17 07/26/17 07/26/17 22:28 04:20 07:35 Temperature 97.8 F Pulse Rate 63 61 Pulse Rate [ 66 Anterior Bilateral Throughout] Respiratory 18 Rate Respiratory 18 Rate [Anterior Bilateral Throughout] Blood Pressure 151/55 O2 Sat by Pulse 94 96 Oximetry 07/26/17 07/26/17 07/26/17 07:45 07:49 08:27 Temperature 98.2 F Pulse Rate Pulse Rate [ 67 Anterior Bilateral Throughout] Respiratory 20 Rate Respiratory 18 Rate [Anterior Bilateral Throughout] Blood Pressure 156/48 156/48 O2 Sat by Pulse Oximetry 07/26/17 09:35 Temperature Pulse Rate Pulse Rate [ Anterior Bilateral Throughout] Respiratory Rate Respiratory Rate [Anterior Bilateral Throughout] Blood Pressure O2 Sat by Pulse 96 Oximetry - General Appearance General appearance: well-developed, well-nourished, appears stated age EENT: ATNC, PERRL, mucous membranes moist Neck: no JVD, no carotid bruit Respiratory: Present: Clear to Ascultation. Absent: Rales, Ronchi Cardiology: regular, S1S2 Gastrointestinal: normoactive bowel sounds, no tenderness, no distended, no guarding Integumentary: no rash, warm and dry Neurologic: no focal deficit, no asterixis, alert and oriented x3 Musculoskeletal: other (no edema in BLE) Psychiatric: mood/affect appropriate, cooperative - Lab 07/26/17 04:00 07/26/17 04:00 Most recent lab results Calcium 8.5 mg/dL (8.4-10.2) 07/26/17 04:00 Phosphorus 3.30 mg/dL (2.5-4.5) 07/24/17 04:50 Magnesium 2.00 mg/dL (1.7-2.3) 07/23/17 11:24
--- NOTE | 2017-07-26 10:15 | Progress Note ---
<NATY RENEE - Last Filed: 07/26/17 12:18> Assessment and Plan Assessment and plan: 82 YO Male with HTN, CHF,HLD, DM, Asthma, CAD S/P CABG, ESRD on HD(T,R,Sa), COPD presents to ED for evaluation. Pt lying in bed, confused and unable to provide history. Pt history taken from ED staff, and EMS. EMS notified for difficulty breathing. Upon arrival, patient was found in respiratory distress and treated with supplemental oxygen, and transported to [facility]. Pt seen and evaluated in ED and found to have respiratory failure secondary to fluid overload and treated with NIPPV as well as diuresis. Nephrology consulted in ED for urgent dialysis. No reports of fever, chills, CP, Palpitations, NVD, prolonged travel/immobility, leg swelling, calf pain, hemoptysis, productive cough, or recent ill contacts. COPD with exacerbation IV abx, supplemental oxygen, nebulizer therapy, pulmonary toilet, NIPPV Inititated IV steroids, pulmonology consulted Acute respiratory failure NIPPV, supplemental oxygen, nebulizer therapy, incentive spirometry, ESRD (end stage renal disease) Nephrology consulted, dialysis as per renal team. CHF (congestive heart failure) Echo, Most recent echo from 2016 showed normal EF, supportive care, fluid restriction, monitor uop q shift, afterload reduction, HTN (hypertension) monitor bp q shift, continue medical management Anemia Likely of chronic dz, On Procrit with HD Continue to monitor, occult blood ordered transfuse if Hgb <7 Hyperkalemia Resolved, will continue to monitor DM with Hyperglycemia Pt on steroids, Levimir increased to 30 units at night, continue high dose sliding scale insulin before meals and at bedtime, ADA diet and Accu-Cheks before meals and at bedtime Hyperlipidemia Continue statin therapy DVT prophylaxis On Eliquis History Interval history: Patient was seen and examined during HD. He denies chest pain, shortness of breath, nausea and vomiting. Labs and nursing notes reviewed. Hospitalist Physical - Constitutional Vitals: Temp Pulse Resp BP Pulse Ox 98.2 F 67 20 156/48 96 07/26/17 07:49 07/26/17 07:45 07/26/17 07:49 07/26/17 08:27 07/26/17 09:35 General appearance: Present: no acute distress - EENT Eyes: Present: PERRL, EOM intact ENT: hearing intact, clear oral mucosa - Neck Neck: Present: supple, normal ROM - Respiratory Respiratory effort: normal Respiratory: bilateral: CTA - Cardiovascular Rhythm: regular Heart Sounds: Present: S1 & S2 - Extremities Extremities: no ischemia, No edema Peripheral Pulses: within normal limits - Abdominal General gastrointestinal: soft, non-tender - Integumentary Integumentary: Present: clear, warm, dry - Psychiatric Psychiatric: appropriate mood/affect, cooperative - Neurologic Neurologic: CNII-XII intact, moves all extremities - Allied Health Allied health notes reviewed: nursing Results - Labs CBC & Chem 7: 07/26/17 04:00 07/26/17 04:00 Labs: Laboratory Last Values WBC 4.3 K/mm3 (4.5-11.0) L 07/26/17 04:00 RBC 2.36 M/mm3 (3.65-5.03) L 07/26/17 04:00 Hgb 8.2 gm/dl (11.8-15.2) L 07/26/17 04:00 Hct 25.1 % (35.5-45.6) L 07/26/17 04:00 MCV 106 fl (84-94) H 07/26/17 04:00 MCH 35 pg (28-32) H 07/26/17 04:00 MCHC 33 % (32-34) 07/26/17 04:00 RDW 16.6 % (13.2-15.2) H 07/26/17 04:00 Plt Count 110 K/mm3 (140-440) L 07/26/17 04:00 Lymph % (Auto) 22.9 % (13.4-35.0) 07/23/17 11:24 [place] % (Auto) 6.4 % (0.0-7.3) 07/23/17 11:24 Eos % (Auto) 2.0 % (0.0-4.3) 07/23/17 11:24 Baso % (Auto) 0.7 % (0.0-1.8) 07/23/17 11:24 Lymph # 1.3 K/mm3 (1.2-5.4) 07/23/17 11:24 [place] # 0.4 K/mm3 (0.0-0.8) 07/23/17 11:24 Eos # 0.1 K/mm3 (0.0-0.4) 07/23/17 11:24 Baso # 0.0 K/mm3 (0.0-0.1) 07/23/17 11:24 Seg Neutrophils % 68.0 % (40.0-70.0) 07/23/17 11:24 Seg Neutrophils # 3.9 K/mm3 (1.8-7.7) 07/23/17 11:24 PT 18.1 Sec. (12.2-14.9) H 07/23/17 11:24 INR 1.42 (0.87-1.13) H 07/23/17 11:24 Sodium 136 mmol/L (137-145) L 07/26/17 04:00 Potassium 4.3 mmol/L (3.6-5.0) 07/26/17 04:00 Chloride 92.3 mmol/L (98-107) L 07/26/17 04:00 Carbon Dioxide 26 mmol/L (22-30) 07/26/17 04:00 Anion Gap 22 mmol/L 07/26/17 04:00 BUN 64 mg/dL (9-20) H 07/26/17 04:00 Creatinine 3.8 mg/dL (0.8-1.5) H D 07/26/17 04:00 Estimated GFR 15 ml/min 07/26/17 04:00 BUN/Creatinine Ratio 17 % 07/26/17 04:00 Glucose 491 mg/dL (75-100) H 07/26/17 04:00 POC Glucose 393 (70-105) H 07/26/17 07:54 Lactic Acid 1.80 mmol/L (0.7-2.0) 07/23/17 12:23 Calcium 8.5 mg/dL (8.4-10.2) 07/26/17 04:00 Phosphorus 3.30 mg/dL (2.5-4.5) 07/24/17 04:50 Magnesium 2.00 mg/dL (1.7-2.3) 07/23/17 11:24 Iron 84 ug/dL (49-181) 07/24/17 04:50 TIBC 219 mcg/dL (250-450) L 07/24/17 04:50 Transferrin 210 mg/dl (180-329) 07/24/17 04:50 Ferritin 581.6 ng/mL (13.0-400.0) H 07/24/17 04:50 Total Bilirubin 1.00 mg/dL (0.1-1.2) 07/23/17 11:24 AST 20 units/L (5-40) 07/23/17 11:24 ALT 16 units/L (7-56) 07/23/17 11:24 Alkaline Phosphatase 77 units/L (35-129) 07/23/17 11:24 Troponin T 0.027 ng/mL (0.00-0.029) 07/23/17 11:24 NT-Pro-B Natriuret Pep 3200 pg/mL (0-900) H 07/23/17 11:24 Total Protein 8.3 g/dL (6.3-8.2) H 07/23/17 11:24 Albumin 4.1 g/dL (3.9-5) 07/23/17 11:24 Albumin/Globulin Ratio 1.0 % 07/23/17 11:24 PTH Intact 109.1 pg/mL (15-65) H 07/24/17 04:50 <JARETT MCFARLANE O - Last Filed: 07/26/17 23:55> Assessment and Plan Assessment and plan: I saw and evaluated the patient. I agree with the findings and the plan of care as documented in the Nurse Practitioner's~note, with the following corrections and additions. Patient with COPD exacerbation. Diabetes uncontrolled. Increase Levemir to 30 Units subcut [facility] Hospitalist Physical - Constitutional Vitals: Temp Pulse Resp BP Pulse Ox 97.7 F 60 18 150/48 96 07/26/17 20:45 07/26/17 22:44 07/26/17 20:45 07/26/17 22:44 07/26/17 20:45 Results - Labs CBC & Chem 7: 07/26/17 04:00 07/26/17 04:00 Labs: Laboratory Last Values WBC 4.3 K/mm3 (4.5-11.0) L 07/26/17 04:00 RBC 2.36 M/mm3 (3.65-5.03) L 07/26/17 04:00 Hgb 8.2 gm/dl (11.8-15.2) L 07/26/17 04:00 Hct 25.1 % (35.5-45.6) L 07/26/17 04:00 MCV 106 fl (84-94) H 07/26/17 04:00 MCH 35 pg (28-32) H 07/26/17 04:00 MCHC 33 % (32-34) 07/26/17 04:00 RDW 16.6 % (13.2-15.2) H 07/26/17 04:00 Plt Count 110 K/mm3 (140-440) L 07/26/17 04:00 Lymph % (Auto) 22.9 % (13.4-35.0) 07/23/17 11:24 [place] % (Auto) 6.4 % (0.0-7.3) 07/23/17 11:24 Eos % (Auto) 2.0 % (0.0-4.3) 07/23/17 11:24 Baso % (Auto) 0.7 % (0.0-1.8) 07/23/17 11:24 Lymph # 1.3 K/mm3 (1.2-5.4) 07/23/17 11:24 [place] # 0.4 K/mm3 (0.0-0.8) 07/23/17 11:24 Eos # 0.1 K/mm3 (0.0-0.4) 07/23/17 11:24 Baso # 0.0 K/mm3 (0.0-0.1) 07/23/17 11:24 Seg Neutrophils % 68.0 % (40.0-70.0) 07/23/17 11:24 Seg Neutrophils # 3.9 K/mm3 (1.8-7.7) 07/23/17 11:24 PT 18.1 Sec. (12.2-14.9) H 07/23/17 11:24 INR 1.42 (0.87-1.13) H 07/23/17 11:24 Sodium 136 mmol/L (137-145) L 07/26/17 04:00 Potassium 4.3 mmol/L (3.6-5.0) 07/26/17 04:00 Chloride 92.3 mmol/L (98-107) L 07/26/17 04:00 Carbon Dioxide 26 mmol/L (22-30) 07/26/17 04:00 Anion Gap 22 mmol/L 07/26/17 04:00 BUN 64 mg/dL (9-20) H 07/26/17 04:00 Creatinine 3.8 mg/dL (0.8-1.5) H D 07/26/17 04:00 Estimated GFR 15 ml/min 07/26/17 04:00 BUN/Creatinine Ratio 17 % 07/26/17 04:00 Glucose 491 mg/dL (75-100) H 07/26/17 04:00 POC Glucose 267 (70-105) H 07/26/17 21:20 Lactic Acid 1.80 mmol/L (0.7-2.0) 07/23/17 12:23 Calcium 8.5 mg/dL (8.4-10.2) 07/26/17 04:00 Phosphorus 3.30 mg/dL (2.5-4.5) 07/24/17 04:50 Magnesium 2.00 mg/dL (1.7-2.3) 07/23/17 11:24 Iron 84 ug/dL (49-181) 07/24/17 04:50 TIBC 219 mcg/dL (250-450) L 07/24/17 04:50 Transferrin 210 mg/dl (180-329) 07/24/17 04:50 Ferritin 581.6 ng/mL (13.0-400.0) H 07/24/17 04:50 Total Bilirubin 1.00 mg/dL (0.1-1.2) 07/23/17 11:24 AST 20 units/L (5-40) 07/23/17 11:24 ALT 16 units/L (7-56) 07/23/17 11:24 Alkaline Phosphatase 77 units/L (35-129) 07/23/17 11:24 Troponin T 0.027 ng/mL (0.00-0.029) 07/23/17 11:24 NT-Pro-B Natriuret Pep 3200 pg/mL (0-900) H 07/23/17 11:24 Total Protein 8.3 g/dL (6.3-8.2) H 07/23/17 11:24 Albumin 4.1 g/dL (3.9-5) 07/23/17 11:24 Albumin/Globulin Ratio 1.0 % 07/23/17 11:24 PTH Intact 109.1 pg/mL (15-65) H 07/24/17 04:50
--- NOTE | 2017-07-26 10:39 | Consultation ---
History of Present Illness Consult date: 07/25/17 Requesting physician: JARETT MCFARLANE Past History Past Medical History: COPD, diabetes, heart failure, hypertension, other (Asthma ) Past Surgical History: CABG, Other (RUE AVF) Social history: . denies: smoking, alcohol abuse, prescription drug abuse Family history: hypertension Medications and Allergies Allergies Allergy/AdvReac Type Severity Reaction Status Date / Time No Known Allergies Allergy Unverified 09/21/15 18:10 Home Medications Medication Instructions Recorded Confirmed Last Taken Type Fluticasone/Salmeterol [Advair 1 puff IH BID 09/21/15 07/23/17 07/22/17 History Diskus 250-50 mcg] Pravastatin Sodium [Pravastatin] 80 mg PO HS 09/21/15 07/23/17 07/22/17 History Tiotropium [Spiriva] 18 mcg IH QDAY 09/21/15 07/23/17 07/22/17 History amLODIPine [Norvasc] 10 mg PO QDAY 30 Days tablet 09/30/15 07/23/17 07/22/17 Rx Apixaban [Eliquis] 5 mg PO BID 07/23/17 07/23/17 07/22/17 History Carvedilol [Coreg] 6.25 mg PO BID 07/23/17 07/23/17 07/22/17 History Fenofibrate [Tricor] 48 mg PO QDAY 07/23/17 07/23/17 07/22/17 History Insulin Detemir [Levemir Flextouch] 20 units SUB-Q QPM 07/23/17 07/23/17 History Insulin Regular, Human [HumuLIN R] 0 unit SQ ACHS 07/23/17 07/23/17 Unknown History Multivitamin Tab [Multiple Vitamin 1 tab PO DAILY 07/23/17 07/23/17 07/22/17 History TAB (Theragran)] Active Meds: Active Medications Acetaminophen (Tylenol) 650 mg PO Q4H PRN PRN Reason: Pain MILD(1-3)/Fever >100.5/GILLESPIE Last Admin: 07/24/17 00:02 Dose: 650 mg Albuterol (Proventil) 2.5 mg IH Q4HRT PRN PRN Reason: Shortness Of Breath Amlodipine Besylate (Norvasc) 10 mg PO QDAY [facility] Last Admin: 07/26/17 08:27 Dose: 10 mg Apixaban (Eliquis) 5 mg PO BID [facility] PRN Reason: Protocol Last Admin: 07/26/17 08:28 Dose: 5 mg Arformoterol Tartrate (Brovana Nebu) 15 mcg IH Q12HRT [facility] Last Admin: 07/26/17 07:40 Dose: 15 mcg Azithromycin (Zithromax) 500 mg PO QDAY [facility] Last Admin: 07/26/17 08:29 Dose: 500 mg Bisacodyl (Dulcolax) 10 mg RI QDAY PRN PRN Reason: Constipation unrelieved by MOM Budesonide (Pulmicort) 0.5 mg IH Q12HRT [facility] Last Admin: 07/26/17 07:40 Dose: 0.5 mg Carvedilol (Coreg) 6.25 mg PO BID [facility] Last Admin: 07/26/17 08:28 Dose: 6.25 mg Dextrose (D50w (25gm) Syringe) 50 ml IV PRN PRN PRN Reason: Hypoglycemia Epoetin [place] (Procrit) 10,000 unit SUB-Q CHENTE [facility] Last Admin: 07/23/17 19:19 Dose: 10,000 unit Fenofibrate (Tricor) 48 mg PO QDAY [facility] Last Admin: 07/25/17 09:17 Dose: 48 mg Sodium Chloride (Nacl 0.9%) 100 mls @ 999 mls/hr IV CHENTE PRN PRN Reason: Hypotension Sodium Chloride (Nacl 0.9%) 100 mls @ 999 mls/hr IV CHENTE PRN PRN Reason: Hypotension Insulin Aspart (Novolog) 0 units SUB-Q ACHS [facility] PRN Reason: Protocol Last Admin: 07/26/17 08:27 Dose: 10 units Insulin Detemir (Levemir) 20 units SUB-Q QHS [facility] Last Admin: 07/25/17 22:33 Dose: 20 units Magnesium Hydroxide (Milk Of Magnesia) 30 ml PO Q4H PRN PRN Reason: Constipation Methylprednisolone Sodium Succinate (Solu-Medrol) 40 mg IV Q12HR [facility] Last Admin: 07/26/17 08:28 Dose: 40 mg Ondansetron HCl (Zofran) 4 mg IV Q8H PRN PRN Reason: N/V unrelieved by Reglan Pravastatin Sodium (Pravachol) 80 mg PO QHS [facility] Last Admin: 07/25/17 22:27 Dose: 80 mg Tiotropium [place] (Spiriva) 1 puff IH QDAY [facility] Last Admin: 07/26/17 10:12 Dose: Not Given Physical Examination Vital signs: Vital Signs Pulse Ox 79 L 07/23/17 11:10 Results - Laboratory Findings CBC and BMP: 07/26/17 04:00 07/26/17 04:00 PT/INR, D-dimer PT 18.1 Sec. (12.2-14.9) H 07/23/17 11:24 INR 1.42 (0.87-1.13) H 07/23/17 11:24 Abnormal lab findings: Abnormal Labs 07/23/17 07/23/17 07/23/17 11:24 11:24 11:24 WBC RBC 2.35 L Hgb 8.3 L Hct 24.5 L MCV 104 H MCH 35 H RDW 17.6 H Plt Count 118 L PT 18.1 H INR 1.42 H Sodium Potassium 5.8 H Chloride 96.0 L BUN 57 H Creatinine 3.4 H Glucose 182 H POC Glucose TIBC Ferritin NT-Pro-B Natriuret Pep Total Protein 8.3 H PTH Intact 07/23/17 07/23/17 07/24/17 11:24 13:55 04:50 WBC 3.4 L RBC 2.20 L Hgb 7.9 L Hct 23.4 L MCV 106 H MCH 36 H RDW 17.5 H Plt Count 102 L PT INR Sodium Potassium Chloride BUN Creatinine Glucose POC Glucose 176 H TIBC Ferritin NT-Pro-B Natriuret Pep 3200 H Total Protein PTH Intact 07/24/17 07/24/17 07/24/17 04:50 04:50 04:50 WBC RBC Hgb Hct MCV MCH RDW Plt Count PT INR Sodium Potassium 5.5 H Chloride 95.5 L BUN 41 H Creatinine 2.6 H Glucose 427 H POC Glucose TIBC 219 L Ferritin 581.6 H NT-Pro-B Natriuret Pep Total Protein PTH Intact 109.1 H 07/24/17 07/24/17 07/25/17 12:29 21:57 06:22 WBC RBC 2.33 L Hgb 8.3 L Hct 24.2 L MCV 104 H MCH 36 H RDW 17.4 H Plt Count 117 L PT INR Sodium Potassium Chloride BUN Creatinine Glucose POC Glucose 386 H 303 H TIBC Ferritin NT-Pro-B Natriuret Pep Total Protein PTH Intact 07/25/17 07/25/17 07/25/17 06:22 07:48 11:26 WBC RBC Hgb Hct MCV MCH RDW Plt Count PT INR Sodium Potassium Chloride 94.3 L BUN 29 H Creatinine 2.5 H Glucose 248 H POC Glucose 256 H 225 H TIBC Ferritin NT-Pro-B Natriuret Pep Total Protein PTH Intact 07/25/17 07/25/17 07/26/17 16:31 21:58 04:00 WBC 4.3 L RBC 2.36 L Hgb 8.2 L Hct 25.1 L MCV 106 H MCH 35 H RDW 16.6 H Plt Count 110 L PT INR Sodium Potassium Chloride BUN Creatinine Glucose POC Glucose 426 H 355 H TIBC Ferritin NT-Pro-B Natriuret Pep Total Protein PTH Intact 07/26/17 07/26/17 04:00 07:54 WBC RBC Hgb Hct MCV MCH RDW Plt Count PT INR Sodium 136 L Potassium Chloride 92.3 L BUN 64 H Creatinine 3.8 H D Glucose 491 H POC Glucose 393 H TIBC Ferritin NT-Pro-B Natriuret Pep Total Protein PTH Intact
[2017-07-26] MEDS ORDERED: NACL 0.9 (PRIMING MACHINE ONLY DIALYSIS) MC ONE (12:11)
[2017-07-26] MEDS: PROCRIT SUB-Q SCH (14:16)
[2017-07-26] MEDS: TRICOR PO SCH (17:08)
[2017-07-26] MEDS ORDERED: LEVEMIR SUB-Q SCH (22:00)
[2017-07-26] MEDS: PRAVACHOL PO SCH (22:45)
[2017-07-27] MEDS: PULMICORT IH SCH (08:28)
[2017-07-27] MEDS: BROVANA NEBU IH SCH (08:28)
[2017-07-27] MEDS: NOVOLOG SUB-Q SCH (09:11)
[2017-07-27] MEDS: ZITHROMAX PO SCH (09:12)
[2017-07-27] MEDS: NORVASC PO SCH (09:12)
[2017-07-27] MEDS: COREG PO SCH (09:12)
[2017-07-27 09:13] VITALS: BP 146/52
--- NOTE | 2017-07-27 09:50 | Progress Note ---
Assessment and Plan (1) ESRD (end stage renal disease) Current Visit: Yes Status: Acute Plan to address problem: no indication for HD today Assess need for HD on daily basis Monitor daily labs Epogen dosing during HD for anemia management Fluid restriction of 1 liter per day Renally dose medications Obtain daily weights Strict intake and output Continue supportive therapy (2) COPD with exacerbation Current Visit: Yes Status: Acute Plan to address problem: On Solumedrol and albuterol nebs treatments followed by pulm currently on Azithromycin (3) Anemia Current Visit: Yes Status: Acute Plan to address problem: On Epogen 10,000 units with HD (4) Hypertensive CKD, ESRD on dialysis Current Visit: Yes Status: Acute Plan to address problem: Continue on antihypertensive agents (5) IDDM (insulin dependent diabetes mellitus) Current Visit: No Status: Chronic Plan to address problem: On insulin as per Primary (6) Hyperkalemia Current Visit: Yes Status: Acute Plan to address problem: resolved Subjective Date of service: 07/27/17 Principal diagnosis: COPD, ESRD Interval history: tolerated HD yesterday, SOB cont to improve Objective - Vital Signs Vital signs: Vital Signs - 12hr 07/26/17 07/26/17 07/27/17 22:43 22:44 08:25 Pulse Rate 60 60 Pulse Rate [ 64 Anterior Bilateral Throughout] Respiratory 18 Rate [Anterior Bilateral Throughout] Blood Pressure 150/48 150/48 O2 Sat by Pulse Oximetry 07/27/17 07/27/17 07/27/17 08:32 08:34 09:12 Pulse Rate 60 Pulse Rate [ 66 Anterior Bilateral Throughout] Respiratory 16 Rate [Anterior Bilateral Throughout] Blood Pressure 146/52 O2 Sat by Pulse 93 Oximetry - General Appearance General appearance: well-developed, well-nourished EENT: ATNC, PERRL, mucous membranes moist Neck: no JVD, no carotid bruit Respiratory: Present: Clear to Ascultation. Absent: Rales, Ronchi Cardiology: regular, S1S2 Gastrointestinal: normoactive bowel sounds, no tenderness, no distended Integumentary: no rash, warm and dry Neurologic: no focal deficit, no asterixis, alert and oriented x3 Musculoskeletal: other (no edema in BLE) Psychiatric: mood/affect appropriate, cooperative - Lab 07/26/17 04:00 07/26/17 04:00 Most recent lab results Calcium 8.5 mg/dL (8.4-10.2) 07/26/17 04:00 Phosphorus 3.30 mg/dL (2.5-4.5) 07/24/17 04:50 Magnesium 2.00 mg/dL (1.7-2.3) 07/23/17 11:24
[2017-07-27] MEDS: SPIRIVA IH SCH (11:03)
--- NOTE | 2017-07-27 11:37 | Discharge Summary ---
Providers - Providers Date of Admission: 07/23/17 12:30 Date of discharge: 07/27/17 Attending physician: JARETT MCFARLANE 07/23/17 11:12 Consult to Physician [CONS] Urgent Consulting Provider: JONATHAN ZARCO Reason For Exam: esrd Notified:: awaiting call back 07/25/17 11:26 Consult to Physician [CONS] Urgent Consulting Provider: JD DAMON Reason For Exam: COPD exacerbation Notified:: yes Primary care physician: COMPUTER ARCHITECT Hospitalization Condition: Good Disposition: DC-01 TO HOME OR SELFCARE Core Measure Documentation - Palliative Care Palliative Care/ Comfort Measures: Not Applicable - Core Measures Any of the following diagnoses?: none Exam - Constitutional Vitals: Temp Pulse Resp BP Pulse Ox 97.8 F 64 16 146/52 97 07/27/17 08:23 07/27/17 11:06 07/27/17 11:06 07/27/17 09:12 07/27/17 11:07 Plan Activity: advance as tolerated Diet: low fat, low cholesterol, low salt, diabetic, renal Additional Instructions: 1.Follow up with PCP in 1 week. 2.Follow up with Pulmonolgist in 1 week. 3.Continue routine hemodialysis as scheduled. 4.Continue home Oxygen at 2l/min continuous. Follow up with: PRIMARY CARE,MD [Primary Care Provider] - 3-5 Days Prescriptions: ALBUTEROL Inhaler [ProAir HFA Inhaler] 2 puff IH QID PRN #1 pump PRN Reason: Shortness Of Breath Azithromycin [Zithromax TAB] 500 mg PO QDAY #2 tablet Insulin Detemir [Levemir Flextouch] 25 unit SQ QHS #1 pen Prednisone [predniSONE 5 mg (6-Day Pack, 21 Tabs)] 5 mg PO .TAPER #1 tab.ds.pk
--- NOTE | 2017-07-27 15:06 | Progress Note ---
Subjective Date of service: 07/27/17 Principal diagnosis: COPD, ESRD Objective Vital Signs - 12hr 07/27/17 07/27/17 07/27/17 08:23 08:25 08:32 Temperature 97.8 F Pulse Rate 60 Pulse Rate [ 64 66 Anterior Bilateral Throughout] Respiratory 20 Rate Respiratory 18 16 Rate [Anterior Bilateral Throughout] Blood Pressure 146/52 O2 Sat by Pulse 93 Oximetry 07/27/17 07/27/17 07/27/17 08:34 09:12 10:00 Temperature Pulse Rate 60 62 Pulse Rate [ Anterior Bilateral Throughout] Respiratory Rate Respiratory Rate [Anterior Bilateral Throughout] Blood Pressure 146/52 O2 Sat by Pulse 93 Oximetry 07/27/17 07/27/17 07/27/17 11:00 11:06 11:07 Temperature Pulse Rate Pulse Rate [ 62 64 Anterior Bilateral Throughout] Respiratory Rate Respiratory 16 16 Rate [Anterior Bilateral Throughout] Blood Pressure O2 Sat by Pulse 97 Oximetry CBC and BMP: 07/26/17 04:00 07/26/17 04:00 ABG, PT/INR, D-dimer: PT/INR, D-dimer PT 18.1 Sec. (12.2-14.9) H 07/23/17 11:24 INR 1.42 (0.87-1.13) H 07/23/17 11:24 Abnormal lab findings: Abnormal Labs 07/23/17 07/23/17 07/23/17 11:24 11:24 11:24 WBC RBC 2.35 L Hgb 8.3 L Hct 24.5 L MCV 104 H MCH 35 H RDW 17.6 H Plt Count 118 L PT 18.1 H INR 1.42 H Sodium Potassium 5.8 H Chloride 96.0 L BUN 57 H Creatinine 3.4 H Glucose 182 H POC Glucose Hemoglobin A1c TIBC Ferritin NT-Pro-B Natriuret Pep Total Protein 8.3 H PTH Intact 07/23/17 07/23/17 07/24/17 11:24 13:55 04:50 WBC 3.4 L RBC 2.20 L Hgb 7.9 L Hct 23.4 L MCV 106 H MCH 36 H RDW 17.5 H Plt Count 102 L PT INR Sodium Potassium Chloride BUN Creatinine Glucose POC Glucose 176 H Hemoglobin A1c TIBC Ferritin NT-Pro-B Natriuret Pep 3200 H Total Protein PTH Intact 07/24/17 07/24/1707/24/18 04:50 04:50 04:50 WBC RBC Hgb Hct MCV MCH RDW Plt Count PT INR Sodium Potassium 5.5 H Chloride 95.5 L BUN 41 H Creatinine 2.6 H Glucose 427 H POC Glucose Hemoglobin A1c TIBC 219 L Ferritin 581.6 H NT-Pro-B Natriuret Pep Total Protein PTH Intact 109.1 H 07/24/17 07/24/17 07/25/17 12:29 21:57 06:22 WBC RBC 2.33 L Hgb 8.3 L Hct 24.2 L MCV 104 H MCH 36 H RDW 17.4 H Plt Count 117 L PT INR Sodium Potassium Chloride BUN Creatinine Glucose POC Glucose 386 H 303 H Hemoglobin A1c TIBC Ferritin NT-Pro-B Natriuret Pep Total Protein PTH Intact 07/25/17 07/25/17 07/25/17 06:22 07:48 11:26 WBC RBC Hgb Hct MCV MCH RDW Plt Count PT INR Sodium Potassium Chloride 94.3 L BUN 29 H Creatinine 2.5 H Glucose 248 H POC Glucose 256 H 225 H Hemoglobin A1c TIBC Ferritin NT-Pro-B Natriuret Pep Total Protein PTH Intact 07/25/17 07/25/17 07/26/17 16:31 21:58 04:00 WBC 4.3 L RBC 2.36 L Hgb 8.2 L Hct 25.1 L MCV 106 H MCH 35 H RDW 16.6 H Plt Count 110 L PT INR Sodium Potassium Chloride BUN Creatinine Glucose POC Glucose 426 H 355 H Hemoglobin A1c TIBC Ferritin NT-Pro-B Natriuret Pep Total Protein PTH Intact 07/26/17 07/26/17 07/26/17 04:00 07:54 12:20 WBC RBC Hgb Hct MCV MCH RDW Plt Count PT INR Sodium 136 L Potassium Chloride 92.3 L BUN 64 H Creatinine 3.8 H D Glucose 491 H POC Glucose 393 H 197 H Hemoglobin A1c TIBC Ferritin NT-Pro-B Natriuret Pep Total Protein PTH Intact 07/26/17 07/26/17 07/27/17 16:32 21:20 08:24 WBC RBC Hgb Hct MCV MCH RDW Plt Count PT INR Sodium Potassium Chloride BUN Creatinine Glucose POC Glucose 328 H 267 H 295 H Hemoglobin A1c TIBC Ferritin NT-Pro-B Natriuret Pep Total Protein PTH Intact 07/27/17 07/27/17 12:18 12:45 WBC RBC Hgb Hct MCV MCH RDW Plt Count PT INR Sodium Potassium Chloride BUN Creatinine Glucose POC Glucose 222 H Hemoglobin A1c 8.1 H TIBC Ferritin NT-Pro-B Natriuret Pep Total Protein PTH Intact
== END 2017-07-27 14:56 | disposition home or self-care (01) | DRG 189 ==
LOC: ED 11:02 → 2B-ACE 12:30
PROVIDERS: ADMIT Internal Medicine; ATTEND Internal Medicine
PROC: 5A1D70Z Performance of Urinary Filtration, Intermittent, Less than 6 Hours Per Day (ICD-10-PCS; principal; 2017-07-23)
PROC: 5A09357 Assistance with Respiratory Ventilation, Less than 24 Consecutive Hours, Continuous Positive Airway Pressure (ICD-10-PCS; 2017-07-23)
PROC: 5A1D70Z Performance of Urinary Filtration, Intermittent, Less than 6 Hours Per Day (ICD-10-PCS; 2017-07-24)
PROC: 5A1D70Z Performance of Urinary Filtration, Intermittent, Less than 6 Hours Per Day (ICD-10-PCS; 2017-07-26)
DX: J96.00 Acute respiratory failure, unspecified whether with hypoxia or hypercapnia (principal); N18.6 End stage renal disease; I13.2 Hypertensive heart and chronic kidney disease with heart failure and with stage 5 chronic kidney disease, or end stage renal disease; J44.1 Chronic obstructive pulmonary disease with (acute) exacerbation; Z99.2 Dependence on renal dialysis; E87.5 Hyperkalemia; D64.9 Anemia, unspecified; E11.22 Type 2 diabetes mellitus with diabetic chronic kidney disease; Z79.4 Long term (current) use of insulin; Z79.01 Long term (current) use of anticoagulants; Z79.82 Long term (current) use of aspirin; E78.5 Hyperlipidemia, unspecified; Z82.49 Family history of ischemic heart disease and other diseases of the circulatory system; I25.10 Atherosclerotic heart disease of native coronary artery without angina pectoris; Z95.1 Presence of aortocoronary bypass graft; E11.65 Type 2 diabetes mellitus with hyperglycemia; I50.9 Heart failure, unspecified
CPT/HCPCS: 36415; 71045; 80048; 80053; 82140; 82728; 82962; 83036; 83550; 83735; 83880; 83970; 84100; 84466; 84484; 85025; 85027; 85610; 87040; 93005; 93010; 94640; 94760; 96365; 96375; A9270-GY; J0456; J0610; J0885; J1815; J1818; J1956; J2920; J2930; J3475; J7030; J7050